=== PATIENT | female | born 1970 | race Caucasian/White ===

== ENCOUNTER 2016-08-23 11:37 | Emergency (ER) | payer OTHER ==
[~2016-08-23] VITALS: Ht 154.9 cm; Wt 71.2 kg
[~2016-08-23 11:37] MED LIST: CELEBREX200 MG PO; PERCOCET 325 MG1 TA2 PO
--- NOTE | 2016-08-23 13:17 | ED CARDIAC/CP/PALPITATIONS ---
History of Present Illness General Chief Complaint: Chest Pain Stated Complaint: PER PT "WENT INTO AFIB ON THE TREADMILL"CP Source: patient, old records Exam Limitations: no limitations Vital Signs & Intake/Output Vital Signs & Intake/Output Vital Signs Date Time Temp Pulse Resp B/P Pulse O2 O2 Flow FiO2 Ox Delivery Rate 08/23 1542 97.5 76 17 128/76 96 Room Air 08/23 1338 Room Air 08/23 1201 97.9 84 18 132/83 95 Room Air Allergies Coded Allergies: Sulfa (Sulfonamide Antibiotics) (Severe, ITCHING, HIVES 08/23/16) ampicillin (Severe, HIVES 08/23/16) theophylline (Severe, SHAKING 08/23/16) Uncoded Allergies: -CILLANS (Severe, HIVES 01/09/14) Reconcile Medications Cetirizine HCl (Zyrtec) 10 MG TABLET 1 TAB PO DAILY ALLERGIES (Reported) Meloxicam 15 MG TABLET 1 TAB PO DAILY PAIN (Reported) Norethindrone AC-Eth Estradiol (Loestrin 21 1.5-30 Tablet) 1.5 MG-30 MCG TABLET 1 TAB PO DAILY BC (Reported) Triage Note: C/O CHEST PAIN SINCE 7:30 AM. PT STATES SHE WAS ON THE [employer]ILL - FELT HEART RACING AND ABNORMAL. SHE HAS BEEN IN AFIB IN THE PAST AND IT FELT THE SAME. PT NOT HAVING RACING HEART RATE NOW. Triage Nurses Notes Reviewed? yes Onset: Abrupt Duration: minute(s): (5), better, constant, resolved prior to arrival Timing: single episode today Quality/Severity: mild, aching, pressure Location: central Radiation: no radiation Activities at Onset: RUNNING Prior Chest Pain/Card Workup: SIMILAR SX Associated Symptoms: DENIES HPI: 46-year-old female presents emergency room for evaluation complaining of a central chest pressure since 7:30 this morning it came on while she was on the treadmill associated with stating that she was "in A. fib" that lasted for 5 minutes while on a treadmill going a moderate speed and resolved upon stopping. The patient states she's had 3 episodes of A. fib" in the past she has been seen by her primary care physician with a normal Holter monitor workup and has never been seen by high energy forming equipment operator. When questioned as to how she knows it is A. fib, her has a history of it and she states that her pulse felt the same. She denies any associated dizziness lightheadedness shortness of breath. She is asymptomatic at this time. She has never been on any anticoagulation. No pain with inspiration cough hemoptysis or fever chills abdominal pain leg swelling or recent immobility. Patient states the episode lasted for minutes and resolved on its own with rest (STEPHY GALLO) Past History Travel History Traveled to [place] past 21 day No Medical History Any Pertinent Medical History? see below for history Neurological: MIGRAINES EENT: NONE Respiratory: NONE Gastrointestinal: NONE Hepatic: NONE Renal: NONE Musculoskeletal: DISK PROBLEMS Psychiatric: NONE Endocrine: INFLAMMATORY ISSUES/TOES Surgical History Surgical History: non-contributory Psychosocial History What is your primary language Swedish Tobacco Use: Never used ETOH Use: occasional use Illicit Drug Use: denies illicit drug use Family History Hx Contributory? No (STEPHY GALLO) Review of Systems Review of Systems Constitutional: Reports: see HPI. All Other Systems: Reviewed and Negative Comments Review of systems: See HPI, All other systems negative. Constitutional, no chills no fever, no malaise HEENT: no sore throat no congestion Cardiovascular: chest pain , palpitation , no orthopnea no ankle swelling Skin, no jaundice no rashes, no change in skin Respiratory: No dyspnea no cough no sputum GI: No nausea no vomiting, no diarrhea, : No dysuria Muscle skeletal: No joint pain, , no back pain, no neck pain, Neurologic: No numbness no headache Psych: No stress Heme/endocrine: No bruising no bleeding Immunology: No lymphadenopathy (STEPHY GALLO) Physical Exam Physical Exam General Appearance: well developed/nourished, no apparent distress, alert, awake Cardiovascular: regular rate/rhythm Comments: Well-developed well-nourished person in no acute distress HEENT: Normal EENT exam; PERRL, EOMI, HEAD is atraumatic. moist mucous membranes. Neck: Supple, normal range of motion Back: Nontender,Full range of motion Cardiovascular: Regular rate and rhythms no murmurs rubs Respiratory: No respiratory distress. Patient speaking in full complete sentences. Breath sounds clear to auscultation bilaterally: NO W/R/R Abdomen: Soft, nontender nondistended, no appreciable organomegaly. Normal bowel sounds. No rebound/guarding Extremity: No edema, full range of motion of extremities, Neuro: Alert oriented x3, motor sensory normal, cranial nerves II through XII grossly intact. There were no obvious focal neurologic abnormalities. Skin: No appreciable rash on exposed skin, skin is warm and dry. Psych: Mood and affect is normal, memory and judgment is normal. Core Measures ACS in differential dx? Yes Severe Sepsis Present: No Septic Shock Present: No (PEDRO ATWOOD,STEPHY) Progress Differential Diagnosis: AMI, atrial fibrillation, cholecystitis, CHF/pulm edema, costochondritis, hypovolemia, hyperventilation, musculoskeletal pain, myocarditis, pancreatitis, pericarditis, pneumonia, pneumothorax, PSVT, pulmonary embolism, PVCs/PACs, unstable angina, V-fib/V-Tach Plan of Care: Orders Procedure Date/time Status Add-on Test (ER Only) 08/23 1417 Active THYROID STIMULATING HORMONE 08/23 1335 Complete Telemetry/Sweeper Driver 08/23 1329 Active TROPONIN LEVEL 08/23 1329 Complete PROTHROMBIN TIME 08/23 1329 Complete MAGNESIUM 08/23 1329 Complete HUMAN BETA HCG SCREEN 08/23 1329 Complete COMPREHENSIVE METABOLIC PANEL 08/23 1329 Complete CBC WITHOUT DIFFERENTIAL 08/23 1329 Complete EKG 08/23 1139 Active Laboratory Tests 08/23/16 1335: Anion Gap 7, Estimated GFR > 60, BUN/Creatinine Ratio 23.3, Glucose 79, Calcium 9.6, Magnesium 2.1, Total Bilirubin 0.5, AST 20, ALT 27, Alkaline Phosphatase 48 , Troponin I < 0.01, Total Protein 7.4, Albumin 4.3, Globulin 3.1, Albumin/ Globulin Ratio 1.4, TSH 1.340, Total Beta HCG NEGATIVE, PT 10.8, INR 1.03, CBC w Diff NO MAN DIFF REQ, RBC 4.34, MCV 93.7, MCH 32.1 H, RDW 13.1, MPV 6.7 L, Gran % 63.4, Lymphocytes % 27.7, Monocytes % 5.8, Eosinophils % 2.6, Basophils % 0.5, Absolute Granulocytes 3.7, Absolute Lymphocytes 1.6, Absolute Monocytes 0.3 , Absolute Eosinophils 0.2, Absolute Basophils 0, PUBS MCHC 34.3 Labs ordered old records reviewed patient is normal sinus on the monitor at this time without complaints we'll continue to monitor case and labs d/w dr barba agrees with plan 08/23/2016 3:42:41 PM on repeat evaluation patient is resting comfortably without any complaints she has been normal sinus in the 70s on the monitor since being here I discussed with the patient and her family at length all of her lab results, need for close follow-up with her primary care physician as well as high energy forming equipment operator Dr. blanc. Symptoms lasted for approximate 5 minutes the patient has been normal sinus on the monitor here I do not believe she will require a repeat troponin given her etiology of her symptoms I discussed with the patient at length all of their results. I had an extensive conversation regarding need for close follow up with their primary care physician this week as well as return precautions. I answered all of their questions, they feel comfortable with the plan and follow-up care. (PEDRO ATWOOD,STEPHY) Diagnostic Imaging: Viewed by Me: Radiology Read. Discussed w/RAD: Radiology Read. Radiology Impression: PATIENT: MANUELITO VELAZCO PRESENT AGE: 46 PATIENT ACCOUNT NO: [id number] : 70 LOCATION: [facility] ORDERING PHYSICIAN: STEPHY ATWOOD SERVICE DATE: 08/23/16 EXAM TYPE: RAD - XRY-CHEST XRAY, PA AND LATERAL EXAMINATION: XR CHEST CLINICAL INFORMATION: Palpitations. Evaluate for cardiomegaly. COMPARISON: None TECHNIQUE: PA and lateral views of the chest are obtained. FINDINGS: The heart is normal in size. There is no congestion or focal consolidation. The bony thorax is unremarkable. IMPRESSION: No acute cardiopulmonary process. DICTATED BY: KELVIN ARGUETA MD DATE/TIME DICTATED:08/23/161346 AUTO ELECTRICIAN:MANAS DATE/TIME TRANSCRIBED:1346 CONFIDENTIAL, DO NOT COPY WITHOUT APPROPRIATE AUTHORIZATION. < Electronically signed in Other Vendor System> SIGNED BY: KELVIN ARGUETA MD 08/23/16 1352 Initial ED EKG: normal intervals, normal p-waves, normal QRS complex, normal sinus rhythm (70), no ST T wave changes Rhythm Strip: normal sinus rhythm (STEPHY GALLO) Departure Departure Time of Disposition: 1518 Disposition: HOME OR SELF CARE Condition: Stable Clinical Impression Primary Impression: Atypical chest pain Referrals: [facility],SPENCER BOWIE MD,[facility] (PCP/Family) Additional Instructions: Follow-up with your primary care physician as well as high energy forming equipment operator Dr. Blanc tomorrow. As discussed refrain from cardiac activity until seen and cleared by the high energy forming equipment operator. Return immediately if he redevelops symptoms or have any other concerns Departure Forms: Customer Survey General Discharge Information (STEPHY GALLO) PA/COMMODITY ANALYST Co-Sign Statement Statement: ED Attending supervision documentation- [] I saw and evaluated the patient. I have also reviewed all the pertinent lab results and diagnostic results. I agree with the findings and the plan of care as documented in the PA's/COMMODITY ANALYST's documentation. [x] I have reviewed the ED Record and agree with the PA's/COMMODITY ANALYST's documentation. [] Additions or exceptions (if any) to the PAs/COMMODITY ANALYST's note and plan are summarized below: [] (ADA BARBA DO) Critical Care Note Critical Care Note Critical Care Time: non-applicable (STEPHY GALLO)
[2016-08-23 13:51] LABS: ABSOLUTE BASOPHIL COUNT 0 /CUMM (0.0-0.2); ABSOLUTE EOSINOPHIL COUNT 0.2 /CUMM (0.0-0.7); ABSOLUTE GRANULOCYTE CT 3.7 /CUMM (1.4-6.5); ABSOLUTE LYMPH COUNT 1.6 /CUMM (1.2-3.4); ABSOLUTE MONOCYTE COUNT 0.3 /CUMM (0.10-0.60); BASOPHIL % 0.5 % (0.0-2.0); EOSINOPHIL % 2.6 % (0-5); GRANULOCYTE % 63.4 % (42.2-75.2); HEMATOCRIT 40.7 % (37-47); MEAN CORPUSCULAR HGB 32.1 PG (27.0-31.0); MEAN CORPUSCULAR HGB CONC 34.3 G/DL (33.0-37.0); MEAN CORPUSCULAR VOLUME 93.7 FL (81.0-99.0); MEAN PLATELET VOLUME 6.7 FL (7.4-10.4); PLATELET COUNT 414 /CUMM (130-400); RBC DISTRIBUTION WIDTH 13.1 % (11.5-14.5); RED BLOOD CELL CT 4.34 /CUMM (4.20-5.40); WHITE BLOOD CELL COUNT 5.9 /CUMM (4.8-10.8)
--- NOTE | 2016-08-23 13:52 | RADIOLOGY REPORT ---
EXAMINATION: XR CHEST CLINICAL INFORMATION: Palpitations. Evaluate for cardiomegaly. COMPARISON: None TECHNIQUE: PA and lateral views of the chest are obtained. FINDINGS: The heart is normal in size. There is no congestion or focal consolidation. The bony thorax is unremarkable. IMPRESSION: No acute cardiopulmonary process.
[2016-08-23 13:57] LABS: PT 10.8 SEC (9.4-12.5)
[2016-08-23] MEDS ORDERED: LOESTRIN 21 1.1 EACH PO (13:58)
[2016-08-23] MEDS ORDERED: MELOXICAM15 M1 PO (13:58)
[2016-08-23] MEDS ORDERED: ZYRTEC10 M3 PO (13:59)
[2016-08-23 15:42] VITALS: BP 128/76
== END 2016-08-23 15:51 ==
LOC: ERH 11:37
PROVIDERS: Physician Assistant Medical
DX: R07.89 Other chest pain (principal)
CPT/HCPCS: 93005; 93010